=== PATIENT | female | born 1990 | race Two or more races ===

== ENCOUNTER → 2016-07-01 | Outpatient (REF) | payer BC | LOC: M SFHCLERA 10:31 | PROVIDERS: ATTEND Nurse Practitioner Family | DX: J02.9 Acute pharyngitis, unspecified (principal) ==

== ENCOUNTER → 2016-07-02 | Outpatient (REF) | payer BC | LOC: M SFHCLERA 12:38 | PROVIDERS: ATTEND Nurse Practitioner Family | DX: R30.0 Dysuria (principal) ==